=== PATIENT | female | born 1975 | race Caucasian/White ===

== ENCOUNTER → 2016-12-10 | Outpatient (CLI) | payer OTHER ==
[~2016-12-10] VITALS: Ht 151.1 cm; Wt 81.0 kg
[~2016-12-10] MED LIST: CALCIUM 600 PLU1 TAB PO; CRESTOR20 MG PO; FLINTSTONES COM1 CT1 PO; NO HOME MEDICATIONS; PROVERA 10MG10 MG PO; SPRINTEC 35 MCG1 TAB PO; ZOCOR 20MG20 MG PO
[2016-12-10 09:16] VITALS: BP 133/87; PULSE 75
[2016-12-10 12:35] VITALS: BP 133/87; PULSE 75
== END ==
LOC: LIGHT 08:55
DX: E78.4 Other hyperlipidemia (principal); N39.3 Stress incontinence (female) (male); F32.89 Other specified depressive episodes; E88.81 Metabolic syndrome and other insulin resistance; Z68.35 Body mass index [BMI] 35.0-35.9, adult

== ENCOUNTER → 2016-12-29 | Outpatient (CLI) | payer OTHER | LOC: LIGHT 11:46 | DX: Z53.9 Procedure and treatment not carried out, unspecified reason (principal) ==

== ENCOUNTER → 2017-01-15 | Outpatient (CLI) | payer OTHER ==
[~2017-01-15] VITALS: Ht 151.1 cm; Wt 81.2 kg
== END ==
LOC: LIGHT 10:44
DX: E78.4 Other hyperlipidemia (principal); N39.3 Stress incontinence (female) (male); F32.89 Other specified depressive episodes; E88.81 Metabolic syndrome and other insulin resistance; Z68.35 Body mass index [BMI] 35.0-35.9, adult

== ENCOUNTER → 2017-02-19 | Outpatient (CLI) | payer OTHER ==
[~2017-02-19] VITALS: Ht 151.1 cm; Wt 83.5 kg
[2017-02-19 15:56] VITALS: BP 137/80; PULSE 96
== END ==
LOC: LIGHT 15:24
DX: E78.4 Other hyperlipidemia (principal); N39.3 Stress incontinence (female) (male); F32.89 Other specified depressive episodes; E88.81 Metabolic syndrome and other insulin resistance; Z68.36 Body mass index [BMI] 36.0-36.9, adult

== ENCOUNTER → 2017-03-03 | Outpatient (CLI) | payer OTHER | LOC: LIGHT 10:40 | DX: Z01.818 Encounter for other preprocedural examination (principal) ==

== ENCOUNTER → 2017-03-19 | Outpatient (CLI) | payer OTHER ==
[~2017-03-19] VITALS: Ht 151.1 cm; Wt 83.5 kg
[2017-03-19 13:48] VITALS: BP 139/73; PULSE 97
== END ==
LOC: LIGHT 13:45
DX: E78.5 Hyperlipidemia, unspecified (principal); N39.3 Stress incontinence (female) (male); F32.89 Other specified depressive episodes; E88.81 Metabolic syndrome and other insulin resistance; Z68.36 Body mass index [BMI] 36.0-36.9, adult

== ENCOUNTER → 2017-04-23 | Outpatient (CLI) | payer OTHER ==
[~2017-04-23] VITALS: Ht 151.1 cm; Wt 84.1 kg
[2017-04-23 13:39] VITALS: BP 126/78; PULSE 100
== END ==
LOC: LIGHT 11:55
DX: G47.33 Obstructive sleep apnea (adult) (pediatric) (principal); N39.3 Stress incontinence (female) (male); F32.89 Other specified depressive episodes; E88.81 Metabolic syndrome and other insulin resistance; Z68.36 Body mass index [BMI] 36.0-36.9, adult

== ENCOUNTER → 2017-05-25 | Outpatient (CLI) | payer OTHER ==
[~2017-05-25] VITALS: Ht 151.1 cm; Wt 85.0 kg
[2017-05-25 15:06] VITALS: BP 134/96; PULSE 72
== END ==
LOC: LIGHT 12:36
DX: G47.33 Obstructive sleep apnea (adult) (pediatric) (principal); N39.3 Stress incontinence (female) (male); F32.89 Other specified depressive episodes; E88.81 Metabolic syndrome and other insulin resistance; Z68.37 Body mass index [BMI] 37.0-37.9, adult; Z71.3 Dietary counseling and surveillance

== ENCOUNTER 2017-05-29 13:29 | Inpatient (IN) | payer OTHER ==
[~2017-05-29] VITALS: Ht 152.4 cm; Wt 81.7 kg
[~2017-05-29 13:29] MED LIST changes: -CALCIUM 600 PLU1 TAB PO; -FLINTSTONES COM1 CT1 PO; -ZOCOR 20MG20 MG PO
[2017-06-17] VITALS (12 sets, daily range): BP systolic 139–156; BP diastolic 79–92; PULSE 65–101; TEMP 97.4–99.4
[2017-06-17] MEDS ORDERED: ZOCOR 20MG20 MG PO (07:32)
[2017-06-18 01:27] VITALS: BP 152/89; PULSE 100; TEMP 98.4
[2017-06-18 04:51] VITALS: BP 147/94; PULSE 95; TEMP 97.6
[2017-06-18 09:37] VITALS: BP 155/104; PULSE 102; TEMP 97.8
[2017-06-18 17:17] VITALS: BP 159/92; PULSE 98; TEMP 98.2
[2017-06-22] MEDS ORDERED: FLINTSTONES COM1 CT1 PO (12:38)
[2017-06-22] MEDS ORDERED: CALCIUM 600 PLU1 TAB PO (12:38)
== END 2017-06-18 17:42 | disposition home or self-care (01) | DRG 621 ==
LOC: INPTSU 06-17 06:28 → SURG 06-17 09:30
PROVIDERS: Surgery
PROC: 0DB64Z3 Excision of Stomach, Percutaneous Endoscopic Approach, Vertical (ICD-10-PCS; principal; 2017-06-17 09:30)
DX: E66.01 Morbid (severe) obesity due to excess calories (principal); E78.00 Pure hypercholesterolemia, unspecified; Z68.36 Body mass index [BMI] 36.0-36.9, adult
CPT/HCPCS: A9284; J0690; J1100; J1170; J1885; J2405; J2704; J2765; J3010; J7042; J7120

== ENCOUNTER → 2017-06-01 | Outpatient (CLI) | payer OTHER ==
[~2017-06-01] MED LIST changes: +CALCIUM 600 PLU1 TAB PO; +FLINTSTONES COM1 CT1 PO; +ZOCOR 20MG20 MG PO
== END ==
LOC: LIGHT 14:55
DX: Z01.818 Encounter for other preprocedural examination (principal); E66.9 Obesity, unspecified; Z71.3 Dietary counseling and surveillance

== ENCOUNTER → 2017-06-22 | Outpatient (CLI) | payer OTHER ==
[~2017-06-22] VITALS: Ht 152.4 cm; Wt 79.2 kg
[2017-06-22 12:39] VITALS: BP 110/82; PULSE 80
== END ==
LOC: LIGHT 12:24
DX: G47.33 Obstructive sleep apnea (adult) (pediatric) (principal); N39.3 Stress incontinence (female) (male); F32.89 Other specified depressive episodes; E88.81 Metabolic syndrome and other insulin resistance; Z68.34 Body mass index [BMI] 34.0-34.9, adult; Z71.3 Dietary counseling and surveillance

== ENCOUNTER → 2017-07-20 | Outpatient (CLI) | payer OTHER ==
[~2017-07-20] VITALS: Ht 152.4 cm; Wt 76.9 kg
[2017-07-20 17:22] VITALS: BP 128/80; PULSE 76
== END ==
LOC: LIGHT 11:02
DX: G47.33 Obstructive sleep apnea (adult) (pediatric) (principal); N39.3 Stress incontinence (female) (male); F32.89 Other specified depressive episodes; E88.81 Metabolic syndrome and other insulin resistance; Z68.33 Body mass index [BMI] 33.0-33.9, adult; Z71.3 Dietary counseling and surveillance

== ENCOUNTER → 2017-09-14 | Outpatient (CLI) | payer OTHER ==
[~2017-09-14] VITALS: Ht 152.4 cm; Wt 71.7 kg
[2017-09-14 16:07] VITALS: BP 110/62; PULSE 72
== END ==
LOC: LIGHT 08:27
DX: G47.33 Obstructive sleep apnea (adult) (pediatric) (principal); N39.3 Stress incontinence (female) (male); F32.89 Other specified depressive episodes; E88.81 Metabolic syndrome and other insulin resistance; Z68.30 Body mass index [BMI] 30.0-30.9, adult; Z71.3 Dietary counseling and surveillance

== ENCOUNTER → 2017-12-21 | Outpatient (CLI) | payer OTHER ==
[~2017-12-21] VITALS: Ht 152.4 cm; Wt 66.5 kg
[2017-12-21 16:00] VITALS: BP 116/76; PULSE 68
== END ==
LOC: LIGHT 08:55
DX: G47.33 Obstructive sleep apnea (adult) (pediatric) (principal); N39.3 Stress incontinence (female) (male); F32.89 Other specified depressive episodes; E88.81 Metabolic syndrome and other insulin resistance; Z68.28 Body mass index [BMI] 28.0-28.9, adult; Z71.3 Dietary counseling and surveillance
CPT/HCPCS: G0463

== ENCOUNTER → 2018-04-12 | Outpatient (CLI) | payer OTHER | LOC: MC.RAD 07:00 | DX: Z12.31 Encounter for screening mammogram for malignant neoplasm of breast (principal) ==

== ENCOUNTER → 2018-04-15 | Outpatient (CLI) | payer OTHER | LOC: MC.RAD 10:11 | DX: N64.89 Other specified disorders of breast (principal) ==

== ENCOUNTER → 2018-06-07 | Outpatient (CLI) | payer OTHER ==
[~2018-06-07] VITALS: Ht 152.4 cm; Wt 61.2 kg
[~2018-06-07] MED LIST changes: +CRESTOR40 MG PO
[2018-06-07 16:55] VITALS: BP 110/60; PULSE 64
== END ==
LOC: LIGHT 14:20
DX: E88.81 Metabolic syndrome and other insulin resistance (principal); F32.9 Major depressive disorder, single episode, unspecified; Z68.26 Body mass index [BMI] 26.0-26.9, adult; N39.3 Stress incontinence (female) (male); Z98.84 Bariatric surgery status
CPT/HCPCS: G0463

== ENCOUNTER → 2020-05-29 | Outpatient (CLI) | payer OTHER | LOC: MC.RAD 10:15 | DX: Z12.31 Encounter for screening mammogram for malignant neoplasm of breast (principal); N64.89 Other specified disorders of breast; Q85.9 Phakomatosis, unspecified ==